=== PATIENT | male | born 1970 | race Caucasian/White ===

== ENCOUNTER → 2019-12-27 | Outpatient (CLI) | payer MEDICAID ==
[~2019-12-27] MED LIST: ASPI-808 PO; BREX0.5T PO; ESCI20TA45 PO; FURO20TA4 PO; GABA300C PO; GEMF600T PO; METF-399 PO; PRAV20TA3 PO; PRAZ2CAP2 PO; REGADENOSON 0.4 MG/5 ML SYR (LEXISCAN) IV ONE
[2019-12-27] MEDS: CATHETER FLUSH 10 ML SYR IV PRN ×2 (08:26→09:36)
[2019-12-27 09:35] VITALS: BP 137/84
--- NOTE | 2019-12-27 11:19 | Cardiology Stress Test Report ---
Stress Test Report Date of Procedure/Referring: Date of Procedure: Dec 27, 2019 PCP Eduard Garcia MD Admitting Physician Center/[facility] Indications: Hyperlipidemia Baseline Heart Rate: 56 Baseline Blood Pressure: Blood Pressure Systolic: 137 Blood Pressure Diastolic: 84 Baseline EKG: Baseline EKG: normal sinus rhythm Summary: Patient received 0.4 mg Lexiscan for stress test, ECG, heart rate and blood pressure were monitored continuously. Resting and stress dose of radio tracer were injected, imaging was acquired and reviewed in short axis, horizontal long axis and vertical long axis views. Conclusion: 1. Patient tolerated Lexiscan well 2. Diaphragmatic attenuation affecting the quality of the images with mild decreased uptake involving the mid to apical inferior wall and inferolateral wall, no significant reversibility was noted but overall nondiagnostic finding due to the significant diaphragmatic attenuation 3. Normal left ventricular size with hypokinesia of the inferior wall, aj culated ejection fraction 45 percent EDUARD GARCIA MD Dec 27, 2019 11:18
== END ==
LOC: CARD 07:37
PROVIDERS: ATTEND Internal Medicine Cardiovascular Disease
DX: I51.89 Other ill-defined heart diseases (principal); E78.1 Pure hyperglyceridemia; E78.5 Hyperlipidemia, unspecified; E66.9 Obesity, unspecified; R42 Dizziness and giddiness
CPT/HCPCS: 78452; 93017

== ENCOUNTER 2019-12-29 10:50 | Day surgery (SDC) | payer MEDICAID ==
[~2019-12-29] VITALS: Ht 193 cm; Wt 136.0 kg
[2019-12-29] VITALS (10 sets, daily range): BP systolic 146–182; BP diastolic 79–97
[2019-12-29] MEDS ORDERED: LIDOCAINE 1% INJ 20 ML 20 ML VIAL ONE (11:10)
[2019-12-29] MEDS ORDERED: NS IV 1000 ML 1,000 ML ONE (11:11)
[2019-12-29] MEDS ORDERED: HEParin (CATH LAB) 2,000 ML IV ONE (11:11)
[2019-12-29] MEDS: NS IV 1000 ML 1,000 ML IV SCH (11:27)
[2019-12-29] MEDS ORDERED: ESCI20TA45 PO (11:36)
[2019-12-29] MEDS ORDERED: BREX0.5T PO (11:36)
[2019-12-29] MEDS ORDERED: FURO20TA4 PO (11:36)
[2019-12-29] MEDS ORDERED: PRAZ2CAP2 PO (11:36)
[2019-12-29] MEDS ORDERED: PRAV20TA3 PO (11:36)
[2019-12-29] MEDS ORDERED: GABA300C PO (11:36)
[2019-12-29] MEDS ORDERED: METF-399 PO (11:36)
[2019-12-29] MEDS ORDERED: ASPI-808 PO (11:36)
[2019-12-29 11:37] LABS: BILIRUBIN,URINE NEGATIVE (NEGATIVE); CLARITY,URINE CLEAR; COLOR,URINE YELLOW; GLUCOSE, URINE (UA) 3+ (NEGATIVE); KETONES,URINE NEGATIVE (NEGATIVE); LEUKOCYTE ESTERASE ,URINE NEGATIVE (NEGATIVE); NITRITE,URINE NEGATIVE (NEGATIVE); PH,URINE 5.5 (5-9); PROTEIN,URINE NEGATIVE (NEGATIVE)
[2019-12-29 11:39] LABS: HEMOGLOBIN 15.8 G/DL (13.3-17.7); MEAN PLATELET VOLUME 11.8 FL (7.4-10.4); RED CELL DISTRIBUTION WIDTH 13.3 % (10.0-14.5); WHITE BLOOD COUNT 8.1 10^3/uL (4.3-11.0)
[2019-12-29 11:43] LABS: BACTERIA,URINE NEGATIVE /HPF
[2019-12-29 11:48] LABS: INR 0.9 (0.8-1.4); PROTHROMBIN TIME PATIENT 12.7 SEC (12.2-14.7)
[2019-12-29 11:57] LABS: ALANINE AMINOTRANSFERASE 34 U/L (0-55); ALBUMIN 4.3 GM/DL (3.2-4.5); ALKALINE PHOSPHATASE 74 U/L (40-136); BILIRUBIN,TOTAL 0.6 MG/DL (0.1-1.0); BUN/CREATININE RATIO 16; CALCIUM 9.5 MG/DL (8.5-10.1); CARBON DIOXIDE 24 MMOL/L (21-32); CHLORIDE 103 MMOL/L (98-107); CHOLESTEROL 236 MG/DL (< 200); CREATININE SERUM 0.83 MG/DL (0.60-1.30); GFR ESTIMATED > 60; GLUCOSE 343 MG/DL (70-105); HDL CHOLESTEROL 36 MG/DL (40-60); POTASSIUM 4.2 MMOL/L (3.6-5.0); SODIUM 137 MMOL/L (135-145); TOTAL PROTEIN 7.8 GM/DL (6.4-8.2); TRIGLYCERIDES 351 MG/DL (<150); VLDL CHOLESTEROL 70 MG/DL (5-40)
--- NOTE | 2019-12-29 11:58 | Diagnostic Imaging Report ---
INDICATION: Preop for heart catheterization. Patient has chest pain. TIME OF EXAM: 11:28 AM. COMPARISON: No prior studies are available for comparison. FINDINGS: The heart size is normal. The pulmonary vascularity is unremarkable. The lungs are clear. No infiltrate, effusion, or pneumothorax is detected. IMPRESSION: No acute cardiopulmonary process is detected. Dictated by: Dictated on workstation # [id number]
--- OUTSIDE RECORDS SUMMARY | 2019-12-29 12:40 | XMS REPORT ---
Author Author Sarath MCCLURE [facility] Address [address] [place] [address] Care Team Providers Care It Business Analyst Name Role Phone ISELA MCCLURE Unavailable PROBLEMS Type Condition ICD9-CM Code VGV84-UM Code Onset Dates Condition S tatus SNOMED Code Problem Severe episode of recurrent major depressive disorder, without psychotic features F33.2 Active 05437893 Problem Severe episode of recurrent major depressive disorder, without psychotic features F33.2 Active 22879985 Problem Hypothyroidism, unspecified type E03.9 Active 51767862 Problem Anxiety F41.9 Active 07656379 Problem Type 2 diabetes mellitus wit h hyperglycemia, without long-term current use of insulin E11.65 Active 17646184 Problem Mixed hyperlipidemia E78.2 Active 709140098 Problem Polyneuropathy associated with underlying disease G63 Active 338276204 Problem Polyneuropathy associated with underlying disease G63 Active 590571670 Problem Essential hypertension I10 Active 99960447 Problem PTSD (post-traumatic stress disorder) F43.10 Active 66536579 ALLERGIES No Information ENCOUNTERS Encounter Location Date Diagnosis [place] [address] [address] Dec, [place] [address] [address] Oct, [place] [address] [address] Sep, Type 2 diabetes mellitus with hyperglyce sdyney, without long-term current use of insulin E11.65 ; Essential hypertension I10 ; Mixed hyperlipidemia E78.2 ; Polyneuropathy associated with underlying disease G63 ; Severe episode of recurrent major depressive disorder, without psychotic features F33.2 and Edema, unspecified type R60.9 [place] [address] [address] Jun, PTSD (post-traumatic stress disorder) F4 3.10 and Major depressive disorder, recurrent severe without psychotic features F33.2 [place] [address] [address] Jun, PTSD (post-traumatic stress disorder) F4 3.10 and Major depressive disorder, recurrent severe without psychotic features F33.2 [place] [address] [address] Jun, Severe episode of recurrent major depres sive disorder, without psychotic features F33.2 and PTSD (post-traumatic stress disorder) F43.10 [place] [address] [address] May, PTSD (post-traumatic stress disorder) F4 3.10 and Major depressive disorder, recurrent severe without psychotic features F33.2 [place] [address] [address] Apr, Type 2 diabetes mellitus with hyperglyce sydney, without long-term current use of insulin E11.65 and Mixed hyperlipidemia E78.2 [place] [address] [address] Apr, Type 2 diabetes mellitus with hyperglyce sydney, without long-term current use of insulin E11.65 ; Hypothyroidism, unspecified type E03.9 ; Mixed hyperlipidemia E78.2 and Essential hypertension I10 [place] [address] [address] Apr, Type 2 diabetes mellitus with hyperglyce sydney, without long-term current use of insulin E11.65 ; Encounter to establish care Z76.89 ; Essential hypertension I10 ; Encounter for immunization Z23 ; Anxiety F41.9 ; PTSD (post- traumatic stress disorder) F43.10 ; Hypothyroidism, unspecified type E03.9 ; Severe episode of recurrent major depressive disorder, without psychotic features F33.2 ; Mixed hyperlipidemia E78.2 and Polyneuropathy associated with underlying disease G63 [place] [address] [address] Aug, IMMUNIZATIONS No Known Immunizations SOCIAL HISTORY Never Assessed REASON FOR VISIT PLAN OF CARE VITAL SIGNS MEDICATIONS Unknown Medications RESULTS No Results PROCEDURES No Known procedures INSTRUCTIONS MEDICATIONS ADMINISTERED No Known Medications MEDICAL (GENERAL) HISTORY Type Description Date Medical History diabetes Medical History high blood pressure Medical History thyroid issues Medical History anxiety Medical History ptsd Medical History migraines Surgical History No Surgical history information
--- OUTSIDE RECORDS SUMMARY | 2019-12-29 12:40 | XMS REPORT | Continuity of Care Document ---
Author Organization Unknown Address Unknown Phone Unavailable Allergies Active Description Code Type Severity Reaction Onset Reported/Identified Relationship to Patient Clinical Status Yes No Allergy Information Available [id number] Drug Allergy Unknown N/A 020 Medications There is no data. Problems There is no data. Procedures There is no data. Results Test Result Range CMP - 05/20/19 11:28 GLUCOSE 275 mg/dL 65-99 UREA NITROGEN (BUN) 11 mg/dL 7-25 CREATININE 0.65 mg/dL 0.60-1.35 eGFR NON-AFR. [place] 115 mL/min/1.73m2 > OR = 60 eGFR 133 mL/min/1.73m2 > OR = 60 BUN/CREATININE RATIO NOT APPLICABLE (calc) 6-22 SODIUM 138 mmol/L 135-146 POTASSIUM 4.7 mmol/L 3.5-5.3 CHLORIDE 102 mmol/L 98-110 CARBON DIOXIDE 28 mmol/L 20-32 CALCIUM 9.6 mg/dL 8.6-10.3 PROTEIN, TOTAL 6.9 g/dL 6.1-8.1 ALBUMIN 4.1 g/dL 3.6-5.1 GLOBULIN 2.8 g/dL (calc) 1.9-3.7 ALBUMIN/GLOBULIN RATIO 1.5 (calc) 1.0-2. 5 BILIRUBIN, TOTAL 0.7 mg/dL 0.2-1.2 ALKALINE PHOSPHATASE 83 U/L 40-115 AST 13 U/L 10-40 ALT 23 U/L 9-46 Automated blood complete blood count (he mogram) panel - 12/29/19 11:24 Blood leukocytes automated count (number/volume) 8.1 10*3/uL 4.3-11.0 Blood erythrocytes automated count (number/volume) 5.01 10*6/uL 4.35-5.85 Venous blood hemoglobin measurement (mass/volume) 15.8 g/dL 13.3-17.7 Blood hematocrit (volume fraction) 45 % 40-54 Automated erythrocyte mean corpuscular volume 89 [ foz_us] 80-99 Automated erythrocyte mean corpuscular h emoglobin (mass per erythrocyte) 32 pg 25-34 Automated erythrocyte mean corpuscular h emoglobin concentration measurement (mass/volume) 35 g/dL 32-36 Automated erythrocyte distribution width ratio 13. 3 % 10.0- 14.5 Automated blood platelet count (count/volume) 240 10*3/uL 130-400 Automated blood platelet mean volume measurement 11.8 [foz_us] 7.4-10.4 Complete urinalysis with reflex to cultu re - 12/29/19 11:24 Urine color determination YELLOW NRG Urine clarity determination CLEAR NR G Urine pH measurement by test strip 5.5 5-9 Specific gravity of urine by test strip 1.025 1.016-1.022 Urine protein assay by test strip, semi-quantitative NEGATIVE NEGATIVE Urine glucose detection by automated test strip 3+ NEGATIVE Erythrocytes detection in urine sediment by light micr oscopy NEGATIVE NEGATIVE Urine ketones detection by automated test strip NE GATIVE NEGATIVE Urine nitrite detection by test strip NEGATIVE NEGATIVE Urine total bilirubin detection by test strip NEGA TIVE NEGATIVE Urine urobilinogen measurement by automated test strip (mass/volume) 0.2 mg/dL < = 1.0 Urine leukocyte esterase detection by dipstick NEG ATIVE NEGATIVE Automated urine sediment erythrocyte cou nt by microscopy (number/high power field) NONE NRG Automated urine sediment leukocyte count by microscopy (number/high power field) NONE NRG Bacteria detection in urine sediment by light microsco py NEGATIVE NRG Squamous epithelial cells detection in u rine sediment by light microscopy 2-5 NRG Crystals detection in urine sediment by light microsco py NONE NRG Casts detection in urine sediment by light microscopy NONE NRG Mucus detection in urine sediment by light microscopy NEGATIVE NRG Complete urinalysis with reflex to culture NO NRG PT panel in platelet poor plasma by coag ulation assay - 12/29/19 11:24 Prothrombin time (PT) in platelet poor plasma by coagu lation assay 12.7 s 12.2-14.7 INR in platelet poor plasma or blood by coagulation as say 0.9 0.8-1.4 Activated partial thromboplastin time (a PTT) in platelet poor plasma bycoagulation assay - 12/29/19 11:24 Activated partial thromboplastin time (a PTT) in platelet poor plasma bycoagulation assay 28 s 24-35 Comprehensive metabolic panel - 12/29/19 11:24 Serum or plasma sodium measurement (moles/volume) 137 mmol/L 135-145 Serum or plasma potassium measurement (moles/volume) 4.2 mmol/L 3.6-5.0 Serum or plasma chloride measurement (moles/volume) 103 mmol/L 98-107 Carbon dioxide 24 mmol/L 21-32 Serum or plasma anion gap determination (moles/volume) 10 mmol/L 5-14 Serum or plasma urea nitrogen measurement (mass/volume ) 13 mg/dL 7-18 Serum or plasma creatinine measurement (mass/volume) 0.83 mg/dL 0.60-1.30 Serum or plasma urea nitrogen/creatinine mass ratio 16 NRG Serum or plasma creatinine measurement w ith calculation of estimated glomerular filtration rate > NRG Serum or plasma glucose measurement (mass/volume) 343 mg/dL 70-105 Serum or plasma calcium measurement (mass/volume) 9.5 mg/dL 8.5-10.1 Serum or plasma total bilirubin measurement (mass/volu me) 0.6 mg/dL 0.1-1.0 Serum or plasma alkaline phosphatase michael surement (enzymatic activity/volume) 74 U/L 40-136 Serum or plasma aspartate aminotransfera se measurement (enzymatic activity/volume) 20 U/L 5-34 Serum or plasma alanine aminotransferase measurement (enzymatic activity/volume) 34 U/L 0-55 Serum or plasma protein measurement (mass/volume) 7.8 g/dL 6.4-8.2 Serum or plasma albumin measurement (mass/volume) 4.3 g/dL 3.2-4.5 CALCIUM CORRECTED 9.3 mg/dL 8.5-10.1 Lipid 1996 panel - 12/29/19 11:24 Serum or plasma triglyceride measurement (mass/volume) 351 mg/dL <150 Serum or plasma cholesterol measurement (mass/volume) 236 mg/dL < 200 Serum or plasma cholesterol in HDL measurement (mass/v olume) 36 mg/dL 40-60 Cholesterol in LDL [mass/volume] in serum or plasma by direct assay 124 mg/dL 1-129 Serum or plasma cholesterol in VLDL measurement (mass/ volume) 70 mg/dL 5-40 Encounters ACCT No. Visit Date/Time Discharge Status Pt. Type Provider Facility Loc./Unit Complaint [id number] 07/15/2019 13:00:00 07/15/2019 23:59:5 9 [facility] [place] [id number] 05/20/2019 11:20:00 Document Registration [id number] 12/29/2019 08:00:00 P EN Preadmit EDUARD PA MD [facility] ABN STRESS TEST [id number] 12/27/2019 08:08:00 Document Registration [id number] 12/27/2019 07:37:[address] Out[address] EDUARD PA MD [facility] CARD HYPERTRIGLYCERIDEMIA,DYSPNEA,DIZZINESS,OBESITY
--- NOTE | 2019-12-29 14:15 | Cardiac Procedure Note-CS/ASA ---
Pre-Procedure Note Pre-Op Procedure Note H&P Reviewed The H&P was reviewed, patient examined and no changes noted. Date H&P Reviewed: Dec 29, 2019 Time H&P Reviewed: 14:15 Conscious Sedation Pre-Proced Time 14:15 ASA Score 3 For ASA 3 and 4: Consider anesthesia and medical clearance. Also, for patients with a history of failed moderate sedation consider anesthesia. Airway Lungs Heart ASA score ASA 1: a normal healthy patient ASA 2: a patient with a mild systemic disease (mid diabetes, controlled hypertension, obesity x ASA 3: a patient with a severe systemic disease that limits activity (angina, COPD, prior Myocardial infarction) ASA 4: a patient with an incapacitating disease that is a constant threat to life (CHF, renal failure) ASA 5: a moribund patient not expected to survive 24 hrs. (ruptured aneurysm) ASA 6: a declared brain- patient whose organs are being harvested. For emergent operations, add the letter E after the classification Mallampati Classification Grade 3 Sedation Plan Analgesia, Amnesia, Plan communicated to team members, Discussed options with patient/fam, Discussed risks with patient/fam The patient is an appropriate candidate to undergo the planned procedure, sedation, and anesthesia. The patient immediately re-assessed prior to indication. EDUARD PA MD Dec 29, 2019 14:15
[2019-12-29] MEDS ORDERED: NITRO DRIP 25000 MCG/D5W 250 ML IV ONE (14:19)
[2019-12-29] MEDS ORDERED: VERAPAMIL 5 MG/2 ML (CALAN) VIAL IV ONE (14:19)
[2019-12-29] MEDS ORDERED: HEParin 1000 UNIT/ML (10ML VIAL) FOR BOLUS ONE (14:19)
[2019-12-29] MEDS ORDERED: MIDAZOLAM 5 MG/5 ML (VERSED) VIAL ONE (14:19)
[2019-12-29] MEDS ORDERED: fentaNYL INJECTION 100 MCG/2 ML AMP ONE (14:19)
[2019-12-29] MEDS ORDERED: NS IV 1000 ML 1,000 ML IV SCH (15:06)
[2019-12-29] MEDS ORDERED: GEMF600T PO (15:09)
--- NOTE | 2019-12-29 15:09 | Discharge Inst-Post CATH ---
Discharge Inst-CATH/EP Problems Reviewed?: Yes Post Cardiac Cath/EP D/C Inst Follow Up/Plan Appointment with Dr. Garcia's office in one month <b>CARDIAC CATH/EP PROCEDURE DISCHARGE INSTRUCTIONS</b> ACTIVITY * Go Home directly and rest. * Limit activity of the leg (or wrist if it was used) for 7 days including aerobics, swimming, jogging, bicycling, etc. * Restrict stair-climbing for 7 days if possible, if not, climb up with your non-cath leg, then bring together on the same step. * Avoid lifting, pushing, pulling or excessive movement of the affected extremity for 7 days. * Customary sexual activity may be resumed after 2 days-use caution not to use a position that strains or causes pain to the affected extremity. * No driving for 24 hours. * NO SMOKING. * Avoid straining for bowel movements for 7 days. * Gentle walking on level ground is allowed. * Returning to work will depend on the type of procedure and the results. Your doctor will discuss this with you. CALL YOUR DOCTOR FOR ANY OF THE FOLLOWING: *If bleeding from the puncture site occurs- Apply gentle pressure to site with clean cloth and call your doctor or EMS. * If a knot or lump forms under the skin, increases in size, or causes pain. * If bruising appears to be worsening or moving further down your leg instead of disappearing. * Temperature above 101 F. CARE OF YOUR GROIN INCISION; * Bruising or purple discoloration of the skin near the puncture site is common. * You may shower only, no bathtub bathing for 5 days. Be careful to avoid slipping as your leg may feel stiff. * If a closure device was used on your femoral artery, please see the attached guide regarding care of the device and your leg. * Leave dressing on FOR 24 hours. CARE OF YOUR WRIST INCISION; * Bruising or purple discoloration of the skin near the puncture site is common. * You may shower. * DO NOT submerge wrist. * Leave dressing on FOR 24 hours. EDUARD GARCIA MD Dec 29, 2019 3:09 pm
--- NOTE | 2019-12-29 15:13 | Cardiac Cath Report ---
Cardiac Cath Report Physician (s)/Broaching Machine Set Up Operator (s) Physician EDUARD PA MD Pre-Procedure Diagnosis Pre-Procedure Diagnosis: coronary artery disease Post-Procedure Note Procedure Start Date: Dec 29, 2019 Name of Procedure: Left heart catheterization Findings/Procedure Note PROCEDURE NOTE: 49-year-old gentleman with history of hypertension, hyperlipidemia, diabetes mellitus, had an abnormal stress test, scheduled for cardiac catheterization possible PTCA. After explaining the procedure to the patient, all pros and cons were explained, all questions were answered. The patient signed the consent and then he was placed on the cardiac catheterization laboratory. Groin was prepped SL fashion local anesthesia was used. Sheath placed in the right radial artery, tiger catheter advanced to the left ventricular cavity then pulled back to the left main coronary system and angiogram was done to the left coronary system exchange into JR catheter and evaluated the right coronary system. At the end of the procedure the sheath was removed. Vascular band was used FINDINGS: Hemodynamics LV 148/18, end-diastolic pressure of 18 Aorta 135/82 mean of 70 ANATOMY: Left Main is free of obstructive disease Left Anterior Descending has mild disease slightly tortuous no obstructive disease Left Circumflex has mild disease with no obstructive disease Right Coronory Artery has mild disease with no obstructive disease CONCLUSION: 1. Mild tortuosity in the LAD, nonobstructive disease otherwise no significant obstructive disease 2. Elevated left ventricular end-diastolic pressure DISCUSSION AND RECOMMENDATION: Medical therapy is recommended no intervention is needed Anesthesia Type: Conscious Sedation Estimated blood loss (mL): 10 ml Contrast Amount: 45 ml Total Radiation Dose: 430 mGy Post-Procedure Diagnosis Post-operative diagnosis: Chest pain Coronary artery disease Hypertension Hyperlipidemia EDUARD PA MD Dec 29, 2019 15:13
== END 2019-12-29 17:40 | disposition home or self-care (01) ==
LOC: CATH 10:50 → SDC 15:25 → CATH 17:40
PROVIDERS: ATTEND Internal Medicine Cardiovascular Disease
DX: I25.10 Atherosclerotic heart disease of native coronary artery without angina pectoris (principal); E78.5 Hyperlipidemia, unspecified; I10 Essential (primary) hypertension; I83.90 Asymptomatic varicose veins of unspecified lower extremity; I87.2 Venous insufficiency (chronic) (peripheral); E78.1 Pure hyperglyceridemia; E11.9 Type 2 diabetes mellitus without complications; E66.9 Obesity, unspecified; Z68.39 Body mass index [BMI] 39.0-39.9, adult; Z79.82 Long term (current) use of aspirin; Z79.84 Long term (current) use of oral hypoglycemic drugs; Z87.891 Personal history of nicotine dependence; Z79.899 Other long term (current) drug therapy; Z82.3 Family history of stroke; Z80.9 Family history of malignant neoplasm, unspecified
CPT/HCPCS: 36415; 71045; 80053; 80061; 81000; 85027; 85610; 85730; 87081; 93458

== ENCOUNTER → 2020-01-06 | Outpatient (CLI) | payer MEDICAID ==
[~2020-01-06] MED LIST changes: -REGADENOSON 0.4 MG/5 ML SYR (LEXISCAN) IV ONE
== END ==
LOC: EDUNIT# 01-03 09:00 → CARD 14:17
PROVIDERS: ATTEND Internal Medicine Cardiovascular Disease
DX: I35.8 Other nonrheumatic aortic valve disorders (principal); E78.1 Pure hyperglyceridemia; E66.9 Obesity, unspecified
CPT/HCPCS: 93306

== ENCOUNTER → 2021-06-18 | Outpatient (CLI) | payer MEDICAID ==
[~2021-06-18] MED LIST changes: +ESCI20TA39 PO; -ESCI20TA45 PO
[2021-06-18 11:23] LABS: ALBUMIN 3.9 GM/DL (3.2-4.5); BILIRUBIN,TOTAL 0.3 MG/DL (0.1-1.0); CALCIUM 9.3 MG/DL (8.5-10.1); CREATININE SERUM 0.8 MG/DL (0.60-1.30); TOTAL PROTEIN 7.7 GM/DL (6.4-8.2)
--- NOTE | 2021-06-18 12:00 | Diagnostic Imaging Report ---
INDICATION: Foot ulcer COMPARISON: None. FINDINGS: 3 views of the left foot demonstrate no acute fracture or dislocation. There are no focal osseous lesions. There is no soft tissue swelling. Joint spaces are well maintained. No radiopaque foreign bodies are seen. IMPRESSION: No acute fractures or dislocations of the left foot. Dictated by: Dictated on workstation # [id number]
== END ==
LOC: RAD 10:43
PROVIDERS: ATTEND Family Medicine
DX: E11.621 Type 2 diabetes mellitus with foot ulcer (principal)
CPT/HCPCS: 36415; 73630; 80053; 83036; 85652; 86141

== ENCOUNTER → 2021-06-18 | Outpatient (CLI) | payer MEDICAID | LOC: WOUNDCARE 09:03 | PROVIDERS: ATTEND Family Medicine | DX: E11.621 Type 2 diabetes mellitus with foot ulcer (principal); L97.522 Non-pressure chronic ulcer of other part of left foot with fat layer exposed; E11.65 Type 2 diabetes mellitus with hyperglycemia; I25.10 Atherosclerotic heart disease of native coronary artery without angina pectoris; L03.116 Cellulitis of left lower limb | CPT/HCPCS: 99214 ==

== ENCOUNTER → 2021-06-27 | Outpatient (CLI) | payer MEDICAID | LOC: WOUNDCARE 13:02 | PROVIDERS: ATTEND Family Medicine | DX: E11.621 Type 2 diabetes mellitus with foot ulcer (principal); L97.522 Non-pressure chronic ulcer of other part of left foot with fat layer exposed; E11.65 Type 2 diabetes mellitus with hyperglycemia; E11.43 Type 2 diabetes mellitus with diabetic autonomic (poly)neuropathy; E11.52 Type 2 diabetes mellitus with diabetic peripheral angiopathy with gangrene | CPT/HCPCS: 11042 ==

== ENCOUNTER → 2021-07-02 | Outpatient (CLI) | payer MEDICAID | LOC: WOUNDCARE 09:39 | PROVIDERS: ATTEND Family Medicine | DX: E11.621 Type 2 diabetes mellitus with foot ulcer (principal); L97.522 Non-pressure chronic ulcer of other part of left foot with fat layer exposed; E11.65 Type 2 diabetes mellitus with hyperglycemia; E11.52 Type 2 diabetes mellitus with diabetic peripheral angiopathy with gangrene; E11.43 Type 2 diabetes mellitus with diabetic autonomic (poly)neuropathy | CPT/HCPCS: 11042 ==

== ENCOUNTER → 2021-07-04 | Outpatient (CLI) | payer MEDICAID | LOC: WOUNDCARE 10:21 | PROVIDERS: ATTEND Family Medicine | DX: E11.621 Type 2 diabetes mellitus with foot ulcer (principal); L97.522 Non-pressure chronic ulcer of other part of left foot with fat layer exposed; E11.52 Type 2 diabetes mellitus with diabetic peripheral angiopathy with gangrene; E11.65 Type 2 diabetes mellitus with hyperglycemia; E11.42 Type 2 diabetes mellitus with diabetic polyneuropathy | CPT/HCPCS: 29445 ==

== ENCOUNTER → 2021-07-09 | Outpatient (CLI) | payer MEDICAID | LOC: WOUNDCARE 10:06 | PROVIDERS: ATTEND Family Medicine | DX: E11.621 Type 2 diabetes mellitus with foot ulcer (principal); L97.522 Non-pressure chronic ulcer of other part of left foot with fat layer exposed; E11.65 Type 2 diabetes mellitus with hyperglycemia; E11.43 Type 2 diabetes mellitus with diabetic autonomic (poly)neuropathy; E11.649 Type 2 diabetes mellitus with hypoglycemia without coma; E11.52 Type 2 diabetes mellitus with diabetic peripheral angiopathy with gangrene | CPT/HCPCS: 11042 ==

== ENCOUNTER → 2021-07-16 | Outpatient (CLI) | payer MEDICAID ==
[~2021-07-16] MED LIST changes: +BENZ100C18 PO; +CEFD300C3 PO
== END ==
LOC: WOUNDCARE 09:58
PROVIDERS: ATTEND Family Medicine
DX: E11.621 Type 2 diabetes mellitus with foot ulcer (principal); E11.52 Type 2 diabetes mellitus with diabetic peripheral angiopathy with gangrene; L97.522 Non-pressure chronic ulcer of other part of left foot with fat layer exposed; E11.65 Type 2 diabetes mellitus with hyperglycemia; E11.43 Type 2 diabetes mellitus with diabetic autonomic (poly)neuropathy; E11.649 Type 2 diabetes mellitus with hypoglycemia without coma
CPT/HCPCS: 11042

== ENCOUNTER → 2021-07-24 | Outpatient (CLI) | payer MEDICAID | LOC: WOUNDCARE 10:13 | PROVIDERS: ATTEND Family Medicine | DX: E11.621 Type 2 diabetes mellitus with foot ulcer (principal); E11.52 Type 2 diabetes mellitus with diabetic peripheral angiopathy with gangrene; L97.522 Non-pressure chronic ulcer of other part of left foot with fat layer exposed; E11.65 Type 2 diabetes mellitus with hyperglycemia; E11.43 Type 2 diabetes mellitus with diabetic autonomic (poly)neuropathy; E11.649 Type 2 diabetes mellitus with hypoglycemia without coma | CPT/HCPCS: 11042 ==

== ENCOUNTER → 2021-08-01 | Outpatient (CLI) | payer MEDICAID | LOC: WOUNDCARE 12:58 | PROVIDERS: ATTEND Family Medicine | DX: E11.621 Type 2 diabetes mellitus with foot ulcer (principal); L97.522 Non-pressure chronic ulcer of other part of left foot with fat layer exposed; E11.65 Type 2 diabetes mellitus with hyperglycemia; E11.43 Type 2 diabetes mellitus with diabetic autonomic (poly)neuropathy; E11.52 Type 2 diabetes mellitus with diabetic peripheral angiopathy with gangrene | CPT/HCPCS: 11042 ==

== ENCOUNTER → 2021-08-06 | Outpatient (CLI) | payer MEDICAID | LOC: WOUNDCARE 10:18 | PROVIDERS: ATTEND Family Medicine | DX: E11.621 Type 2 diabetes mellitus with foot ulcer (principal); L97.522 Non-pressure chronic ulcer of other part of left foot with fat layer exposed; E11.65 Type 2 diabetes mellitus with hyperglycemia; E11.43 Type 2 diabetes mellitus with diabetic autonomic (poly)neuropathy; E11.52 Type 2 diabetes mellitus with diabetic peripheral angiopathy with gangrene | CPT/HCPCS: 11042 ==

== ENCOUNTER → 2021-08-07 | Outpatient (CLI) | payer MEDICAID | LOC: WOUNDCARE 16:05 | PROVIDERS: ATTEND Family Medicine | DX: E11.621 Type 2 diabetes mellitus with foot ulcer (principal); L97.522 Non-pressure chronic ulcer of other part of left foot with fat layer exposed; E11.65 Type 2 diabetes mellitus with hyperglycemia; E11.43 Type 2 diabetes mellitus with diabetic autonomic (poly)neuropathy; Z68.37 Body mass index [BMI] 37.0-37.9, adult | CPT/HCPCS: 29445 ==

== ENCOUNTER → 2021-08-13 | Outpatient (CLI) | payer MEDICAID | LOC: WOUNDCARE 08:38 | PROVIDERS: ATTEND Family Medicine | DX: E11.621 Type 2 diabetes mellitus with foot ulcer (principal); E11.52 Type 2 diabetes mellitus with diabetic peripheral angiopathy with gangrene; L97.522 Non-pressure chronic ulcer of other part of left foot with fat layer exposed; E11.65 Type 2 diabetes mellitus with hyperglycemia; E11.43 Type 2 diabetes mellitus with diabetic autonomic (poly)neuropathy; L03.116 Cellulitis of left lower limb | CPT/HCPCS: 29445 ==

== ENCOUNTER → 2021-08-20 | Outpatient (CLI) | payer MEDICAID | LOC: WOUNDCARE 10:23 | PROVIDERS: ATTEND Family Medicine | DX: E11.621 Type 2 diabetes mellitus with foot ulcer (principal); L97.522 Non-pressure chronic ulcer of other part of left foot with fat layer exposed; E11.65 Type 2 diabetes mellitus with hyperglycemia; E11.43 Type 2 diabetes mellitus with diabetic autonomic (poly)neuropathy | CPT/HCPCS: 99212 ==

== ENCOUNTER → 2022-03-25 | Outpatient (CLI) | payer MEDICAID | LOC: WOUNDCARE 13:10 | PROVIDERS: ATTEND Family Medicine | DX: L97.522 Non-pressure chronic ulcer of other part of left foot with fat layer exposed (principal); L97.512 Non-pressure chronic ulcer of other part of right foot with fat layer exposed; E11.621 Type 2 diabetes mellitus with foot ulcer; E11.40 Type 2 diabetes mellitus with diabetic neuropathy, unspecified; B37.2 Candidiasis of skin and nail; E66.01 Morbid (severe) obesity due to excess calories; L92.8 Other granulomatous disorders of the skin and subcutaneous tissue | CPT/HCPCS: 11042 ==

== ENCOUNTER → 2022-04-05 | Outpatient (CLI) | payer MEDICAID ==
--- NOTE | 2022-04-05 10:31 | Diagnostic Imaging Report ---
HISTORY: Bilateral foot ulcers. TECHNIQUE: 3 views of the bilateral feet. COMPARISON: Foot radiographs from 06/18/2021 FINDINGS: No acute fracture or dislocation is seen in the right foot. Alignment is normal. There are mild degenerative changes in the toes. There is calcaneal enthesopathy. There is calcific atherosclerosis. There is a soft tissue calcification measuring about 1.4 cm, adjacent to the 5th metatarsal head. No acute fracture or dislocation is seen in the left foot. There is soft tissue swelling and ulceration at the great toe. There is overlying hyperdensity which is thought to be due to paint on the nail. No definite cortical erosion or periosteal reaction is identified. There are mild degenerative changes in the interphalangeal joints of the toes. There are small calcaneal enthesophytes. IMPRESSION: 1. Mild degenerative changes in the feet with no radiographic findings of osteomyelitis. If there is persistent clinical concern, consider MRI to further evaluate. 2. Soft tissue swelling and ulceration of the left great toe. 3. Prominent soft tissue calcification adjacent to the right 5th metatarsal head. Dictated by: Dictated on workstation # [id number]
== END ==
LOC: WOUNDCARE 08:17
PROVIDERS: ATTEND Family Medicine
DX: E11.621 Type 2 diabetes mellitus with foot ulcer (principal); E11.40 Type 2 diabetes mellitus with diabetic neuropathy, unspecified; E11.52 Type 2 diabetes mellitus with diabetic peripheral angiopathy with gangrene; I96 Gangrene, not elsewhere classified; L97.512 Non-pressure chronic ulcer of other part of right foot with fat layer exposed; L97.522 Non-pressure chronic ulcer of other part of left foot with fat layer exposed; E66.01 Morbid (severe) obesity due to excess calories; L92.8 Other granulomatous disorders of the skin and subcutaneous tissue; Z68.38 Body mass index [BMI] 38.0-38.9, adult
CPT/HCPCS: 11042

== ENCOUNTER → 2022-04-12 | Outpatient (CLI) | payer MEDICAID | LOC: WOUNDCARE 08:18 | PROVIDERS: ATTEND Family Medicine | DX: L97.522 Non-pressure chronic ulcer of other part of left foot with fat layer exposed (principal); L97.512 Non-pressure chronic ulcer of other part of right foot with fat layer exposed; E11.621 Type 2 diabetes mellitus with foot ulcer; E11.40 Type 2 diabetes mellitus with diabetic neuropathy, unspecified; E66.01 Morbid (severe) obesity due to excess calories; L92.8 Other granulomatous disorders of the skin and subcutaneous tissue; E11.52 Type 2 diabetes mellitus with diabetic peripheral angiopathy with gangrene | CPT/HCPCS: 11042; 17250 ==

== ENCOUNTER → 2022-04-23 | Outpatient (CLI) | payer MEDICAID | LOC: WOUNDCARE 12:56 | PROVIDERS: ATTEND Family Medicine | DX: L97.522 Non-pressure chronic ulcer of other part of left foot with fat layer exposed (principal); L97.512 Non-pressure chronic ulcer of other part of right foot with fat layer exposed; E11.621 Type 2 diabetes mellitus with foot ulcer; E11.40 Type 2 diabetes mellitus with diabetic neuropathy, unspecified; E66.01 Morbid (severe) obesity due to excess calories; L92.9 Granulomatous disorder of the skin and subcutaneous tissue, unspecified | CPT/HCPCS: 17250 ==

== ENCOUNTER → 2022-05-07 | Outpatient (CLI) | payer MEDICAID | LOC: WOUNDCARE 13:06 | PROVIDERS: ATTEND Family Medicine | DX: E11.621 Type 2 diabetes mellitus with foot ulcer (principal); E11.40 Type 2 diabetes mellitus with diabetic neuropathy, unspecified; A49.9 Bacterial infection, unspecified; L97.512 Non-pressure chronic ulcer of other part of right foot with fat layer exposed; E66.01 Morbid (severe) obesity due to excess calories; L92.8 Other granulomatous disorders of the skin and subcutaneous tissue; Z68.38 Body mass index [BMI] 38.0-38.9, adult | CPT/HCPCS: 11042; 87070; 87077; 87186; 87205 ==

== ENCOUNTER → 2022-05-14 | Outpatient (CLI) | payer MEDICAID | LOC: WOUNDCARE 12:57 | PROVIDERS: ATTEND Family Medicine | DX: L97.512 Non-pressure chronic ulcer of other part of right foot with fat layer exposed (principal); E11.621 Type 2 diabetes mellitus with foot ulcer; E11.40 Type 2 diabetes mellitus with diabetic neuropathy, unspecified; E66.01 Morbid (severe) obesity due to excess calories; L92.8 Other granulomatous disorders of the skin and subcutaneous tissue; B95.62 Methicillin resistant Staphylococcus aureus infection as the cause of diseases classified elsewhere | CPT/HCPCS: 11042 ==

== ENCOUNTER → 2022-05-27 | Outpatient (CLI) | payer MEDICAID | LOC: WOUNDCARE 15:16 | PROVIDERS: ATTEND Family Medicine | DX: E11.621 Type 2 diabetes mellitus with foot ulcer (principal); E11.40 Type 2 diabetes mellitus with diabetic neuropathy, unspecified; E11.52 Type 2 diabetes mellitus with diabetic peripheral angiopathy with gangrene; I96 Gangrene, not elsewhere classified; L97.512 Non-pressure chronic ulcer of other part of right foot with fat layer exposed; E66.01 Morbid (severe) obesity due to excess calories; Z68.38 Body mass index [BMI] 38.0-38.9, adult | CPT/HCPCS: 11042 ==

== ENCOUNTER → 2022-06-28 | Outpatient (CLI) | payer MEDICAID ==
[2022-06-28 09:15] LABS: BASOPHILS # (AUTO) 0.1 10^3/uL (0.0-0.1); BASOPHILS % (AUTO) 1 % (0-10); EOSINOPHILS # (AUTO) 0.3 10^3/uL (0.0-0.3); EOSINOPHILS % (AUTO) 3 % (0-10); HEMATOCRIT 47 % (40-54); HEMOGLOBIN 15.9 g/dL (13.3-17.7); LYMPHOCYTES % (AUTO) 18 % (12-44); MEAN CORPUSCULAR HEMOGLOBIN 31 pg (25-34); MEAN CORPUSCULAR HGB CONC 34 g/dL (32-36); MEAN CORPUSCULAR VOLUME 93 fL (80-99); MEAN PLATELET VOLUME 11.4 fL (9.0-12.2); MONOCYTES # (AUTO) 0.5 10^3/uL (0.0-1.0); MONOCYTES % (AUTO) 5 % (0-12); NEUTROPHILS # (AUTO) 7.8 10^3/uL (1.8-7.8); NEUTROPHILS % (AUTO) 73 % (42-75); PLATELET COUNT 307 10^3/uL (130-400); WHITE BLOOD COUNT 10.8 10^3/uL (4.3-11.0)
[2022-06-28 09:31] LABS: ALBUMIN 4.2 GM/DL (3.2-4.5); BILIRUBIN,TOTAL 0.5 MG/DL (0.1-1.0); CALCIUM 9.3 MG/DL (8.5-10.1); CREATININE SERUM 0.87 MG/DL (0.60-1.30); POTASSIUM 3.9 MMOL/L (3.6-5.0); TOTAL PROTEIN 7.8 GM/DL (6.4-8.2)
[2022-06-28 10:00] LABS: ERYTHROCYTE SEDIMENTATION RATE 16 MM/HR (0-30)
== END ==
LOC: WOUNDCARE 08:02
PROVIDERS: ATTEND Family Medicine
DX: E11.621 Type 2 diabetes mellitus with foot ulcer (principal); E11.52 Type 2 diabetes mellitus with diabetic peripheral angiopathy with gangrene; I96 Gangrene, not elsewhere classified; E11.40 Type 2 diabetes mellitus with diabetic neuropathy, unspecified; L97.512 Non-pressure chronic ulcer of other part of right foot with fat layer exposed; E66.01 Morbid (severe) obesity due to excess calories; Z68.38 Body mass index [BMI] 38.0-38.9, adult
CPT/HCPCS: 11042; 36415; 80053; 83036; 85025; 85652; 86141; 87070; 87077; 87186; 87205

== ENCOUNTER → 2022-07-04 | Outpatient (CLI) | payer MEDICAID | LOC: WOUNDCARE 08:06 | PROVIDERS: ATTEND Family Medicine | DX: I96 Gangrene, not elsewhere classified (principal); L97.512 Non-pressure chronic ulcer of other part of right foot with fat layer exposed; E11.621 Type 2 diabetes mellitus with foot ulcer; E11.40 Type 2 diabetes mellitus with diabetic neuropathy, unspecified; E66.01 Morbid (severe) obesity due to excess calories; Z68.38 Body mass index [BMI] 38.0-38.9, adult | CPT/HCPCS: 11042 ==

== ENCOUNTER → 2022-07-11 | Outpatient (CLI) | payer MEDICAID | LOC: WOUNDCARE 09:52 | PROVIDERS: ATTEND Family Medicine | DX: L97.512 Non-pressure chronic ulcer of other part of right foot with fat layer exposed (principal); E11.621 Type 2 diabetes mellitus with foot ulcer; E11.40 Type 2 diabetes mellitus with diabetic neuropathy, unspecified; E66.01 Morbid (severe) obesity due to excess calories; B95.62 Methicillin resistant Staphylococcus aureus infection as the cause of diseases classified elsewhere | CPT/HCPCS: 11042 ==

== ENCOUNTER → 2022-08-13 | Outpatient (CLI) | payer MEDICAID | LOC: WOUNDCARE 08:13 | PROVIDERS: ATTEND Family Medicine | DX: E11.621 Type 2 diabetes mellitus with foot ulcer (principal); E11.40 Type 2 diabetes mellitus with diabetic neuropathy, unspecified; E11.52 Type 2 diabetes mellitus with diabetic peripheral angiopathy with gangrene; I96 Gangrene, not elsewhere classified; L97.512 Non-pressure chronic ulcer of other part of right foot with fat layer exposed; Z68.41 Body mass index [BMI] 40.0-44.9, adult | CPT/HCPCS: 11042; 87070; 87077; 87205 ==

== ENCOUNTER 2022-08-21 09:19 | Observation (INO) | payer BC, MEDICAID ==
[~2022-08-21] VITALS: Ht 193 cm; Wt 143.2 kg
[~2022-08-21 09:19] MED LIST changes: -ASPI-1238 PO; -ATOR20TA66 PO; -DULA0.75 SQ; -EMPA25TA PO; -GLIP10TA13 PO; -INSU100I29 SC; -LEVO75TA6 PO
[2022-08-21] MEDS ORDERED: NS IV 1000 ML 1,000 ML IV SCH (10:00)
[2022-08-21] MEDS ORDERED: TETANUS,DIPTH,PERTUSS P/F (BOOSTRIX) 0.5 ML VIAL IM ONE (10:00)
[2022-08-21 10:01] LABS: BASOPHILS % (AUTO) 1 % (0-10); EOSINOPHILS # (AUTO) 0.5 10^3/uL (0.0-0.3); EOSINOPHILS % (AUTO) 5 % (0-10); HEMATOCRIT 44 % (40-54); HEMOGLOBIN 15.3 g/dL (13.3-17.7); LYMPHOCYTES # (AUTO) 1.9 10^3/uL (1.0-4.0); LYMPHOCYTES % (AUTO) 22 % (12-44); MEAN CORPUSCULAR HEMOGLOBIN 32 pg (25-34); MEAN CORPUSCULAR HGB CONC 35 g/dL (32-36); MEAN CORPUSCULAR VOLUME 93 fL (80-99); MEAN PLATELET VOLUME 11.2 fL (9.0-12.2); MONOCYTES # (AUTO) 0.4 10^3/uL (0.0-1.0); MONOCYTES % (AUTO) 5 % (0-12); NEUTROPHILS # (AUTO) 5.6 10^3/uL (1.8-7.8); NEUTROPHILS % (AUTO) 67 % (42-75); PLATELET COUNT 261 10^3/uL (130-400); WHITE BLOOD COUNT 8.5 10^3/uL (4.3-11.0)
--- NOTE | 2022-08-21 10:01 | ED General ---
General Stated Complaint: FALL | FACIAL INJ Source of Information: Patient History of Present Illness Date Seen by Provider: Aug 21, 2022 Time Seen by Provider: 09:45 Initial Comments PT ARRIVES INTO ER ON HIS OWN--USING A KNEE SCOOTER PT HAS BEEN TO WOUND CARE CLINIC THIS AM, AN WAS GOING OUT TO HIS VEHICLE AND HAD A SYNCOPAL EPISODE IN THE PARKING LOT, LANDING FACE FIRST ON THE PAVEMENT HE HAS INJURY TO HIS 2 FRONT UPPER TEETH C/O MOUTH PAIN AND PAIN TO HIS HEAD--ESPECIALLY THE FRONTAL ASPECT OF HIS HEAD HE DENIES NECK OR BACK PAIN HE HAS ONGOING CHEST PAIN, STATES HE HAS IT "ALL THE TIME" "BUT IT'S BEEN A LITTLE WORSE LATELY" HE HAS HAD A CARDIAC CATH IN THE PAST, BUT NO INTERVENTION. HE HAS AN APPOINTMENT WITH DR. PA, CERTIFIED MORTICIAN, TOMORROW NO PALPITATIONS NO SHORTNESS OF BREATH NO SWEATS NO NAUSEA/VOMITING HE HAS SOME MINOR ABRASIONS TO RIGHT PALM AND LEFT FINGERS. HE DENIES PAIN ANYWHERE ELSE. DENIES NECK OR BACK PAIN NO PARESTHESIAS OR MOTOR DEFICITS. HE IS NOT CURRENTLY HAVING CHEST PAIN NO FEVER OR RECENT ILLNESS PT STATES HE HAS BEEN HAVING THESE SYNCOPAL EPISODES, AND IS SUPPOSED TO HAVE SEVERAL OTHER TESTS NEXT MONTH AN OUTPATIENT FOR THIS, INCLUDING AN MRI OF HIS HEAD. PT IS DIABETIC--TAKES LEVEMIR AND TRULICITY HE STATES HE WOKE UP LATE THIS MORNING, TOOK HIS MEDICATION, AND CAME TO WOUND CLINIC. HE DID NOT EAT THIS MORNING ACCUCHECK ON ARRIVAL IS 130 HE TAKES 325 MG ASPIRIN DAILY. HE IS NOT ON ANY OTHER BLOOD THINNERS HE HAS HAD COVID VACCINE X 4. HE IS NOT SURE IF HE HAS HAD FLU SHOT FOR THIS SEASON PCP: [facility]. ELIO CASE Allergies and Home Medications Allergies Coded Allergies: No Known Drug Allergies (Unverified , 12/29/19) Patient Home Medication List Home Medication List Reviewed: Yes Aspirin (Aspirin EC) 81 Mg Tablet., 81 MG PO HS, (Reported) Entered as Reported by: DUNIA COVARRUBIAS on 08/21/221518 Last Action: Reviewed Atorvastatin Calcium (Atorvastatin Calcium) 20 Mg Tablet, 20 MG PO HS, (Reported) Entered as Reported by: DUNIA COVARRUBIAS on 08/21/221518 Last Action: Reviewed Dulaglutide (Trulicity) 0.75 Mg/0.5 Ml Pen.injctr, 0.75 MG SQ SUN, (Reported) Entered as Reported by: DUNIA COVARRUBIAS on 08/21/221518 Last Action: Reviewed Empagliflozin (Jardiance) 25 Mg Tablet, 25 MG PO DAILY, (Reported) Entered as Reported by: DUNIA COVARRUBIAS on 08/21/221518 Last Action: Reviewed Escitalopram Oxalate (Escitalopram Oxalate) 20 Mg Tablet, 20 MG PO DAILY, (Reported) Entered as Reported by: ALAINA BUCHANAN on 12/29/191135 Last Action: Reviewed Gabapentin (Neurontin) 300 Mg Capsule, 300 MG PO TID, (Reported) Entered as Reported by: DUNIA COVARRUBIAS on 08/21/221518 Last Action: Reviewed Glipizide (Glipizide) 10 Mg Tablet, 10 MG PO HS, (Reported) Entered as Reported by: DUNIA COVARRUBIAS on 08/21/221518 Last Action: Reviewed Insulin Detemir (Levemir Flextouch) 100 Unit/Ml (3 Ml) Insuln.pen, 50 UNITS SC HS, (Reported) Entered as Reported by: DUNIA COVARRUBIAS on 08/21/221518 Last Action: Reviewed Levothyroxine Sodium (Levothyroxine Sodium) 75 Mcg Tablet, 75 MCG PO DAILY, (Reported) Entered as Reported by: DUNIA COVARRUBIAS on 08/21/221518 Last Action: Reviewed Metformin HCl (Metformin HCl) 1,000 Mg Tablet, 1,000 MG PO BID, (Reported) Entered as Reported by: DUNIA COVARRUBIAS on 08/21/221518 Last Action: Reviewed Discontinued Medications Aspirin (Aspirin) 325 Mg Tablet, 325 MG PO DAILY, (Reported) Discontinued Reason: No Longer Taking Entered as Reported by: ALAINA BUCHANAN on 12/29/191135 Last Action: Discontinued Benzonatate (Tessalon Perles) 100 Mg Capsule, 200 MG PO Q8H PRN for cough Discontinued Reason: No Longer Taking Prescribed by: SERGIO GOMEZ on 07/13/21 0033 Last Action: Discontinued Brexpiprazole (Rexulti) 0.5 Mg Tablet, 0.5 MG PO DAILY, (Reported) Discontinued Reason: No Longer Taking Entered as Reported by: ALAINA BUCHANAN on 12/29/191135 Last Action: Discontinued Cefdinir (Cefdinir) 300 Mg Capsule, 300 MG PO BID Discontinued Reason: No Longer Taking Prescribed by: SERGIO GOMEZ on 07/13/21 0033 Last Action: Discontinued Furosemide (Furosemide) 20 Mg Tablet, 20 MG PO DAILY, (Reported) Entered as Reported by: ALAINA BUCHANAN on 12/29/191135 Last Action: Reviewed Gabapentin (Neurontin) 300 Mg Capsule, 300 MG PO TID, (Reported) Discontinued Reason: No Longer Taking Entered as Reported by: ALAINA BUCHANAN on 12/29/191135 Last Action: Discontinued Gemfibrozil (Lopid) 600 Mg Tablet, 600 MG PO BID Discontinued Reason: No Longer Taking Prescribed by: EDUARD PA on 12/29/19 1509 Last Action: Discontinued Pravastatin Sodium (Pravastatin Sodium) 20 Mg Tablet, 20 MG PO DAILY, (Reported) Discontinued Reason: No Longer Taking Entered as Reported by: ALAINA BUCHANAN on 12/29/191135 Last Action: Discontinued Prazosin HCl (Prazosin HCl) 2 Mg Capsule, 2 MG PO HS, (Reported) Discontinued Reason: No Longer Taking Entered as Reported by: ALAINA BUCHANAN on 12/29/191135 Last Action: Discontinued Review of Systems Review of Systems Constitutional: see HPI, other (SYMCOPE) EENTM: see HPI Respiratory: no symptoms reported Cardiovascular: see HPI, chest pain; No edema, No palpitations; syncope Gastrointestinal: no symptoms reported Genitourinary: no symptoms reported Musculoskeletal: no symptoms reported Skin: see HPI Psychiatric/Neurological: See HPI, Headache; Denies Numbness, Denies Paresthesia, Denies Tingling, Denies Weakness Hematologic/Lymphatic: No Symptoms Reported Immunological/Allergic: no symptoms reported Past Uuulghr-Oxsfpe-Mibkbb Hx Patient Social History Tobacco Use?: Yes Tobacco type used: Cigarettes Smoking Status: Former Smoker Use of E-Cig and/or Vaping dev: No Substance use?: No Alcohol Use?: Yes Alcohol Frequency: Once in a while Immunizations Up To Date Tetanus Booster (TDap): Less than 5yrs First/Initial COVID19 Vaccinat: July 2020 Second COVID19 Vaccination Brett: August 2020 Past Medical History Surgeries: Yes Cardiac Respiratory: Yes Sleep Apnea Currently Using CPAP: No Cardiac: Yes (CHEST PAIN ) High Cholesterol, Hypertension Neurological: No Genitourinary: No Gastrointestinal: Yes Gastroesophageal Reflux Musculoskeletal: No Endocrine: Yes (OBESITY) Diabetes, Insulin dep HEENT: No Cancer: No Psychosocial: Yes Anxiety, Depression Integumentary: Yes (CHRONIC WOUND RIGHT FOOT/LEG) Blood Disorders: No Family Medical History SOCIAL HISTORY: -SMOKED 2 PPD, QUIT 25 YEARS AGO -ETOH--OCCASIONAL USE -DRUGS--DENIES USE CARDIAC CATH 12/29/[address] PA: CONCLUSION: 1. Mild tortuosity in the LAD, nonobstructive disease otherwise no significant obstructive disease 2. Elevated left ventricular end-diastolic pressure DISCUSSION AND RECOMMENDATION: Medical therapy is recommended no intervention is needed Physical Exam Vital Signs Vital Signs - First Documented Capillary Refill : Height, Weight, BMI Height: '" Weight: lbs. oz. kg; 36.00 BMI Method: General Appearance: No Apparent Distress, WD/WN, Obese Eyes: Right Eye Normal Inspection, Right Eye PERRL, Right Eye EOMI, Right Eye Abnormal EOM, Right Eye Abnormal Pupil, Right Eye Conjunctivae Pale, Right Eye Lid Inflammation, Right Eye Photophobia, Right Eye Scleral Icterus, Right Eye Other HEENT: PERRL/EOMI, TMs Normal, Other (2 FRONT TEETH DISPLACED AND BROKEN) Neck: Full Range of Motion, Normal Inspection, Non Tender, Supple Respiratory: Chest Non Tender, Normal Breath Sounds, No Accessory Muscle Use, No Respiratory Distress Cardiovascular: Regular Rate, Rhythm, No Edema, No JVD, No Murmur, Normal Peripheral Pulses Gastrointestinal: Non Tender, Soft Back: Normal Inspection, No CVA Tenderness, No Vertebral Tenderness Extremity: Normal Capillary Refill, Normal Range of Motion, No Calf Tenderness, No Pedal Edema Neurologic/Psychiatric: Alert, Oriented x3, No Motor/Sensory Deficits, Normal Mood/Affect, mental health case manager II-XII Norm as Tested Skin: Normal Color, Warm/Dry, Other (MINOR ABRASIONS TO RIGHT PALM AND LEFT FINGERS. ) Focused Exam Lactate Level 08/21/22 10:26: Lactic Acid Level 1.53 Lactic Acid Level Laboratory Tests Test 08/21/22 10:26 Lactic Acid Level 1.53 MMOL/L (0.50-2.00) Progress/Results/Core Measures Suspected Sepsis SIRS Temperature: Pulse: Respiratory Rate: Laboratory Tests 08/21/22 09:50: White Blood Count 8.5 Blood Pressure / Mean: 08/21/22 10:26: Lactic Acid Level 1.53 Laboratory Tests 08/21/22 09:50: Creatinine 0.86, INR Comment 1.0, Platelet Count 261, Total Bilirubin 0.5 Results/Orders Lab Results Laboratory Tests Test 08/21/22 09:41 08/21/22 09:50 08/21/22 10:26 08/21/22 10:59 Range/Units Glucometer 130 H 70-110 MG/DL White Blood Count 8.5 4.3-11.0 10^3/uL Red Blood Count 4.76 4.30-5.52 10^6/uL Hemoglobin 15.3 13.3-17.7 g/dL Hematocrit 44 40-54 % Mean Corpuscular Volume 93 80-99 fL Mean Corpuscular Hemoglobin 32 25-34 pg Mean Corpuscular Hemoglobin Concent 35 32-36 g/dL Red Cell Distribution Width 13.2 10.0-14.5 % Platelet Count 261 130-400 10^3/uL Mean Platelet Volume 11.2 9.0-12.2 fL Immature Granulocyte % (Auto) 0 % Neutrophils (%) (Auto) 67 42-75 % Lymphocytes (%) (Auto) 22 12-44 % Monocytes (%) (Auto) 5 0-12 % Eosinophils (%) (Auto) 5 0-10 % Basophils (%) (Auto) 1 0-10 % Neutrophils # (Auto) 5.6 1.8-7.8 10^3/uL Lymphocytes # (Auto) 1.9 1.0-4.0 10^3/uL Monocytes # (Auto) 0.4 0.0-1.0 10^3/uL Eosinophils # (Auto) 0.5 H 0.0-0.3 10^3/uL Basophils # (Auto) 0.0 0.0-0.1 10^3/uL Immature Granulocyte # (Auto) 0.0 0.0-0.1 10^3/uL Erythrocyte Sedimentation Rate 19 0-30 MM/HR Prothrombin Time 13.3 12.2-14.7 SEC INR Comment 1.0 0.8-1.4 Activated Partial Thromboplast Time 30 24-35 SEC D-Dimer < 0.27 0.00-0.49 UG/ML Sodium Level 139 135-145 MMOL/L Potassium Level 3.7 3.6-5.0 MMOL/L Chloride Level 104 98-107 MMOL/L Carbon Dioxide Level 23 21-32 MMOL/L Anion Gap 12 5-14 MMOL/L Blood Urea Nitrogen 11 7-18 MG/DL Creatinine 0.86 0.60-1.30 MG/DL Estimat Glomerular Filtration Rate 104 BUN/Creatinine Ratio 13 Glucose Level 137 H 70-105 MG/DL Calcium Level 9.2 8.5-10.1 MG/DL Corrected Calcium 9.1 8.5-10.1 MG/DL Magnesium Level 2.2 1.6-2.4 MG/DL Total Bilirubin 0.5 0.1-1.0 MG/DL Aspartate Amino Transf (AST/SGOT) 20 5-34 U/L Alanine Aminotransferase (ALT/SGPT) 43 0-55 U/L Alkaline Phosphatase 77 40-136 U/L Total Creatine Kinase 148 30-200 U/L Creatine Kinase MB 1.3 <6.6 NG/ML Myoglobin 91.6 10.0-92.0 NG/ML Troponin I < 0.028 <0.028 NG/ML C-Reactive Protein High Sensitivity 1.94 H 0.00-0.50 MG/DL B-Type Natriuretic Peptide < 10.0 <100.0 PG/ML Total Protein 7.4 6.4-8.2 GM/DL Albumin 4.1 3.2-4.5 GM/DL Lipase 17 8-78 U/L Serum Alcohol < 10 <10 MG/DL Lactic Acid Level 1.53 0.50-2.00 MMOL/L Urine Color YELLOW Urine Clarity CLEAR Urine pH 5.5 5-9 Urine Specific [place] 1.020 1.016-1.022 Urine Protein NEGATIVE NEGATIVE Urine Glucose (UA) 3+ H NEGATIVE Urine Ketones NEGATIVE NEGATIVE Urine Nitrite NEGATIVE NEGATIVE Urine Bilirubin NEGATIVE NEGATIVE Urine Urobilinogen 0.2 < = 1.0 MG/DL Urine Leukocyte Esterase NEGATIVE NEGATIVE Urine RBC (Auto) NEGATIVE NEGATIVE Urine RBC NONE /HPF Urine WBC NONE /HPF Urine Squamous Epithelial Cells RARE /HPF Urine Crystals NONE /LPF Urine Bacteria NEGATIVE /HPF Urine Casts NONE /LPF Urine Mucus NEGATIVE /LPF Urine Culture Indicated NO Urine Opiates Screen NEGATIVE NEGATIVE Urine Oxycodone Screen NEGATIVE NEGATIVE Urine Methadone Screen NEGATIVE NEGATIVE Urine Propoxyphene Screen NEGATIVE NEGATIVE Urine Barbiturates Screen NEGATIVE NEGATIVE Ur Tricyclic Antidepressants Screen NEGATIVE NEGATIVE Urine Phencyclidine Screen NEGATIVE NEGATIVE Urine Amphetamines Screen NEGATIVE NEGATIVE Urine Methamphetamines Screen NEGATIVE NEGATIVE Urine Benzodiazepines Screen NEGATIVE NEGATIVE Urine Cocaine Screen NEGATIVE NEGATIVE Urine Cannabinoids Screen NEGATIVE NEGATIVE My Orders Orders - RACHELLE BARDALESA Corinne DO Accucheck Stat ONCE (08/21/22 09:51) Ekg Tracing (08/21/22 09:51) Monitor-Rhythm Ecg Trace Only (08/21/22 09:51) Ct Head/Face/Cervical Wo (08/21/22 09:51) Chest 1 View, Ap/Pa Only (08/21/22 09:51) Alcohol (08/21/22 09:51) Bnp [place] (08/21/22 09:51) Cbc With Automated Diff (08/21/22 09:51) Comprehensive Metabolic Panel (08/21/22 09:51) Creatine Kinase (08/21/22 09:51) Creatine Kinase Mb (08/21/22 09:51) Hs C Reactive Protein (08/21/22 09:51) Fibrin Degradation Products (08/21/22 09:51) Drug Screen Stat (Urine) (08/21/22 09:51) Lactic Acid Analyzer (08/21/22 09:51) Lipase (08/21/22 09:51) Magnesium (08/21/22 09:51) Protime With Inr (08/21/22 09:51) Partial Thromboplastin Time (08/21/22 09:51) Ua Culture If Indicated (08/21/22 09:51) Erythrocyte Sedimentation Rate (08/21/22 09:51) Myoglobin Serum (08/21/22 09:51) Troponin I [place] (08/21/22 09:51) Ed Iv/Invasive Line Start (08/21/22 09:51) Ns Iv 1000 Ml (Sodium Chloride 0.9%) (08/21/22 10:00) Dipht,Pertuss(Acell),Tet Adult (Boostrix (08/21/22 10:00) Fentanyl Inj (Sublimaze Injection) (08/21/22 10:30) Ed Admission (Communication) (08/21/22 11:19) Medications Given in ED Vital Signs/I&O 08/21/22 08/21/22 09:38 09:38 Temp 36.7 36.7 Pulse 70 70 Resp 16 16 B/P (MAP) 130/76 (94) 130/76 (94) Pulse Ox 99 99 O2 Delivery Room Air Room Air Capillary Refill : Progress Note : Progress Note GIVEN; -DTP VACCINE -IV FLUIDS UNEVENTFUL ER STAY VITALS STABLE NO C/O CHEST PAIN ONLY C/O HEAD AND MOUTH PAIN REVIEWED TEST RESULTS, NEED FOR ADMIT, AND PT AGREES ECG Initial ECG Impression Date: Aug 21, 2022 Initial ECG Impression Time: 09:56 Initial ECG Rate: 70 Initial ECG Rhythm: Normal Sinus Initial ECG Impression: Nonspecific Changes Initial ECG Comparisson: Unchanged (NO CHANGE FROM 07/12/2021) Comment INTERPRETED BY ME Diagnostic Imaging Comments CXR--PER RADIOLOGIST REPORT AT 1032 Heart is mildly enlarged. Mediastinal silhouette is unremarkable. The lungs are clear. There is no pneumothorax or pleural fluid. IMPRESSION: Mild cardiomegaly with no acute process in the chest. CT HEAD/MAXILLOFACIALS/CERVICAL SPINE--PER RADIOLOGIST REPORT AT 1047 FINDINGS: CT HEAD: No intracranial hemorrhage, mass effect, hydrocephalus or extra-axial fluid collections. No CT evidence of a territorial infarction. The calvarium is intact. The mastoids are clear. CT MAXILLOFACIAL: No fractures. Mild mucosal thickening in the maxillary and sphenoid sinuses. Normal alignment of the temporomandibular joints. The mandible is intact. CT CERVICAL SPINE: Normal alignment. Vertebral body heights are preserved. No fractures. Mild spondylotic changes. No CT evidence of high-grade spinal canal stenosis. Mild atherosclerotic calcifications in the carotid bifurcations. Lung apices are unremarkable. IMPRESSION: No acute intracranial or cervical spine CT findings. No maxillofacial fractures. Reviewed: Reviewed by Me Departure Communication (Admissions) 1048--CALLED DR. PA, CERTIFIED MORTICIAN, MESSAGE LEFT ON CELL PHONE [phone]--SPOKE WITH DR. PA, HE ADVISES TO ADMIT TO HOSPITALIST 1115--SPOKE WITH DR TRUJILLO, HOSPITALIST, ACCEPTS PT FOR ADMIT. SHE WILL DO ADMIT ORDERS 1117--SPOKE WITH DR. SIERRA, ORAL/MAXILLOFACIAL SURGEON, AND INFORMED OF CONSULT. Impression Primary Impression: Syncope Additional Impressions: Chest pain Dental injury Insulin dependent diabetes mellitus Diabetic foot ulcer Minor head injury without loss of consciousness Facial contusion Kfzuvbcwak-mdtqxoivv-cdeikkd (DPT) vaccination administered at current visit ABRASIONS TO BILATERAL HANDS AND FINGERS Disposition: ADMITTED INPATIENT Condition: Stable Admissions Decision to Admit Reason: Admit from ER (General) Decision to Admit/Date: Aug 21, 2022 Time/Decision to Admit Time: 11:00 Departure-Patient Inst. Referrals: DANA CASE (PCP) Primary Care Physician [facility] (Family) Primary Care Physician FREDA BARDALES DO Aug 21, 2022 10:01
[2022-08-21 10:12] LABS: ALBUMIN 4.1 GM/DL (3.2-4.5); CHLORIDE 104 MMOL/L (98-107); POTASSIUM 3.7 MMOL/L (3.6-5.0); SODIUM 139 MMOL/L (135-145)
[2022-08-21 10:13] LABS: CALCIUM 9.2 MG/DL (8.5-10.1)
[2022-08-21 10:14] LABS: GLUCOSE 137 MG/DL (70-105); TOTAL PROTEIN 7.4 GM/DL (6.4-8.2)
[2022-08-21 10:15] LABS: CARBON DIOXIDE 23 MMOL/L (21-32)
[2022-08-21 10:16] LABS: BILIRUBIN,TOTAL 0.5 MG/DL (0.1-1.0)
[2022-08-21 10:18] LABS: ALKALINE PHOSPHATASE 77 U/L (40-136); CREATININE SERUM 0.86 MG/DL (0.60-1.30); GFR ESTIMATED 104
[2022-08-21 10:19] LABS: BUN/CREATININE RATIO 13; FIBRIN DEGRADATION PRODUCTS < 0.27 UG/ML (0.00-0.49); PARTIAL THROMBOPLASTIN TIME 30 SEC (24-35); PROTHROMBIN TIME PATIENT 13.3 SEC (12.2-14.7)
[2022-08-21 10:21] LABS: ALANINE AMINOTRANSFERASE 43 U/L (0-55); MAGNESIUM 2.2 MG/DL (1.6-2.4)
[2022-08-21 10:22] LABS: LIPASE 17 U/L (8-78)
[2022-08-21 10:23] LABS: CREATINE KINASE 148 U/L (30-200); ERYTHROCYTE SEDIMENTATION RATE 19 MM/HR (0-30)
[2022-08-21 10:29] LABS: CREATINE KINASE MB 1.3 NG/ML (<6.6)
--- NOTE | 2022-08-21 10:29 | Diagnostic Imaging Report ---
INDICATION: Dizziness and chest pain and fall. Frontal chest obtained at 10:22 a.m. compared to 07/12/2021 Heart is mildly enlarged. Mediastinal silhouette is unremarkable. The lungs are clear. There is no pneumothorax or pleural fluid. IMPRESSION: Mild cardiomegaly with no acute process in the chest. Dictated by: Dictated on workstation # [id number]
[2022-08-21] MEDS ORDERED: fentaNYL INJ 100 MCG/2 ML AMP IVP ONE ×2 (10:30→11:30)
--- NOTE | 2022-08-21 10:36 | Diagnostic Imaging Report ---
PROCEDURE: CT head, face, and cervical spine without contrast. TECHNIQUE: Multiple contiguous axial images were obtained through the head, neck, and facial bones without the use of intravenous contrast. Sagittal and coronal reformations through the cervical spine and facial bones were also performed. Auto Exposure Controls were utilized during the CT exam to meet ALARA standards for radiation dose reduction. INDICATION: Trauma. Left head and neck pain. COMPARISON: None. FINDINGS: CT HEAD: No intracranial hemorrhage, mass effect, hydrocephalus or extra-axial fluid collections. No CT evidence of a territorial infarction. The calvarium is intact. The mastoids are clear. CT MAXILLOFACIAL: No fractures. Mild mucosal thickening in the maxillary and sphenoid sinuses. Normal alignment of the temporomandibular joints. The mandible is intact. CT CERVICAL SPINE: Normal alignment. Vertebral body heights are preserved. No fractures. Mild spondylotic changes. No CT evidence of high-grade spinal canal stenosis. Mild atherosclerotic calcifications in the carotid bifurcations. Lung apices are unremarkable. IMPRESSION: No acute intracranial or cervical spine CT findings. No maxillofacial fractures. Dictated by: Dictated on workstation # [id number]
[2022-08-21 11:07] LABS: BILIRUBIN,URINE NEGATIVE (NEGATIVE); CLARITY,URINE CLEAR; COLOR,URINE YELLOW; GLUCOSE, URINE (UA) 3+ (NEGATIVE); KETONES,URINE NEGATIVE (NEGATIVE); LEUKOCYTE ESTERASE ,URINE NEGATIVE (NEGATIVE); NITRITE,URINE NEGATIVE (NEGATIVE); PH,URINE 5.5 (5-9); PROTEIN,URINE NEGATIVE (NEGATIVE)
[2022-08-21 11:15] LABS: BACTERIA,URINE NEGATIVE /HPF; SQUAMOUS EPITHELIAL CELL,UR RARE /HPF
[2022-08-21 11:18] LABS: AMPHETAMINE SCREEN, URINE NEGATIVE (NEGATIVE); BARBITURATE SCREEN URINE NEGATIVE (NEGATIVE); BENZODIAZEPINES SCREEN URINE NEGATIVE (NEGATIVE); CANNABINOID SCREEN, URINE NEGATIVE (NEGATIVE); COCAINE SCREEN URINE NEGATIVE (NEGATIVE); METHADONE STAT NEGATIVE (NEGATIVE); OPIATE SCREEN URINE NEGATIVE (NEGATIVE); OXYCODONE STAT NEGATIVE (NEGATIVE); PROPOXYPHENE STAT NEGATIVE (NEGATIVE); TRICYCLIC ANTIDEPRESSANTS SCRE NEGATIVE (NEGATIVE)
[2022-08-21] MEDS ORDERED: fentaNYL INJ 100 MCG/2 ML AMP IVP STA (11:27)
--- NOTE | 2022-08-21 11:47 | Consultation-Cardiology ---
HPI-Cardiology Cardiology Consultation Date of Consultation 08/21/22 Date of Admission Time Seen by Provider: 11:34 Indication: Syncope HPI Patient is a 52 y/o male with history of nonobstructive CAD per cath in 2019, HLP, DM. Presented to the ER after having syncopal episode in the parking lot as he was walking to his car from wound care. Patient reports he has had ongoing dizziness and near syncope for the last year and was scheduled to see up in office tomorrow regarding this. Reporting some intermittent right sided chest pain, denies any active chest pain at this time. Denies any dyspnea on exertion or peripheral edema. States DM have been well controlled recently. Has been going to wound care for nonhealing wound to left foot. Home Medications & Allergies Allergies: Coded Allergies: No Known Drug Allergies (Unverified , 12/29/19) Home Medication List Reviewed: Yes [id number] Hx Patient Social History Marital Status: single Smoking Status: Former Smoker Recent Hopitalizations: No Have you traveled recently?: No Alcohol Use?: Yes Immunizations Up To Date Tetanus Booster (TDap): Less than 5yrs Date of Influenza Vaccine: May 28, 2019 Past Medical History HLP, DM, extobaccoism Family Medical History Significant Family History: No Pertinent Family Hx Review of Systems-General Review of Systems Constitutional: see HPI, other ([facility]) EENTM: see HPI Respiratory: no symptoms reported; No cough, No dyspnea on exertion, No short of breath Cardiovascular: see HPI, chest pain; No edema, No palpitations; syncope Gastrointestinal: no symptoms reported, see HPI Genitourinary: no symptoms reported, see HPI Musculoskeletal: no symptoms reported, see HPI Skin: see HPI Psychiatric/Neurological: See HPI, Headache; Denies Numbness, Denies Paresthesia, Denies Tingling, Denies Weakness Reviewed Test Results Reviewed Test Results Lab Laboratory Tests 08/21/22 09:41: Glucometer 130H 08/21/22 09:50: White Blood Count 8.5, Red Blood Count 4.76, Hemoglobin 15.3, Hematocrit 44, Mean Corpuscular Volume 93, Mean Corpuscular Hemoglobin 32, Mean Corpuscular Hemoglobin Concent 35, Red Cell Distribution Width 13.2, Platelet Count 261, Mean Platelet Volume 11.2, Immature Granulocyte % (Auto) 0, Neutrophils (%) (Auto) 67, Lymphocytes (%) (Auto) 22, Monocytes (%) (Auto) 5, Eosinophils (%) (Auto) 5, Basophils (%) (Auto) 1, Neutrophils # (Auto) 5.6, Lymphocytes # (Auto) 1.9, Monocytes # (Auto) 0.4, Eosinophils # (Auto) 0.5H, Basophils # (Auto) 0.0, Immature Granulocyte # (Auto) 0.0, Erythrocyte Sedimentation Rate 19, Prothrombin Time 13.3, INR Comment 1.0, Activated Partial Thromboplast Time 30, D-Dimer < 0.27, Sodium Level 139, Potassium Level 3.7, Chloride Level 104, Carbon Dioxide Level 23, Anion Gap 12, Blood Urea Nitrogen 11, Creatinine 0.86, Estimat Glomerular Filtration Rate 104, BUN/Creatinine Ratio 13, Glucose Level 137H, Calcium Level 9.2, Corrected Calcium 9.1, Magnesium Level 2.2, Total Bilirubin 0.5, Aspartate Amino Transf (AST/SGOT) 20, Alanine Aminotransferase (ALT/SGPT) 43, Alkaline Phosphatase 77, Total Creatine Kinase 148, Creatine Kinase MB 1.3, Myoglobin 91.6, Troponin I < 0.028, C-Reactive Protein High Sensitivity 1.94H, B-Type Natriuretic Peptide < 10.0, Total Protein 7.4, Albumin 4.1, Lipase 17, Serum Alcohol < 10 08/21/22 10:26: Lactic Acid Level 1.53 08/21/22 10:59: Urine Color YELLOW, Urine Clarity CLEAR, Urine pH 5.5, Urine Specific [place] 1.020, Urine Protein NEGATIVE, Urine Glucose (UA) 3+H, Urine Ketones NEGATIVE, Urine Nitrite NEGATIVE, Urine Bilirubin NEGATIVE, Urine Urobilinogen 0.2, Urine Leukocyte Esterase NEGATIVE, Urine RBC (Auto) NEGATIVE, Urine RBC NONE, Urine WBC NONE, Urine Squamous Epithelial Cells RARE, Urine Crystals NONE, Urine Bacteria NEGATIVE, Urine Casts NONE, Urine Mucus NEGATIVE, Urine Culture Indicated NO, Urine Opiates Screen NEGATIVE, Urine Oxycodone Screen NEGATIVE, Urine Methadone Screen NEGATIVE, Urine Propoxyphene Screen NEGATIVE, Urine Barbiturates Screen NEGATIVE, Ur Tricyclic Antidepressants Screen NEGATIVE, Urine Phencyclidine Screen NEGATIVE, Urine Amphetamines Screen NEGATIVE, Urine Methamphetamines Screen NEGATIVE, Urine Benzodiazepines Screen NEGATIVE, Urine Cocaine Screen NEGATIVE, Urine Cannabinoids Screen NEGATIVE ECG Impression ECG Initial ECG Rhythm: Normal Sinus Physical Exam Physical Exam Vital Signs Vital Signs - First Documented Capillary Refill : Less Than 3 Seconds Height, Weight, BMI Height: '" Weight: lbs. oz. kg; 36.00 BMI Method: General Appearance: No Apparent Distress, WD/WN, Obese HEENT: PERRL/EOMI, TMs Normal, Other (2 FRONT TEETH DISPLACED AND BROKEN) Neck: Full Range of Motion, Normal Inspection, Non Tender, Supple Respiratory: Chest Non Tender, Normal Breath Sounds, No Accessory Muscle Use, No Respiratory Distress Cardiovascular: Regular Rate, Rhythm, No Edema, No JVD, No Murmur, Normal Peripheral Pulses Gastrointestinal: Non Tender, Soft Back: Normal Inspection, No CVA Tenderness, No Vertebral Tenderness Extremity: Normal Capillary Refill, Normal Range of Motion, No Calf Tenderness, No Pedal Edema Neurologic/Psychiatric: Alert, Oriented x3, No Motor/Sensory Deficits, Normal Mood/Affect, community associate II-XII Norm as Tested Skin: Normal Color, Warm/Dry, Other (MINOR ABRASIONS TO RIGHT PALM AND LEFT FINGERS. ) A/P-Cardiology Admission Diagnosis Syncope Dizziness/lightheadedness HLP DM Assessment/Plan Syncope, unknown etiology, questionable vasovagal syncope. Patient has dizziness followed by syncopal episode while walking to his car. Patient reports he has had increased dizziness and near syncope with standing over the past year. Has been maintained on Lasix as outpatient, denies any recent edema. I will d/c Lasix. Will continue on telemetry,evaluate 2D Echo. Consider tilt table test Nonobstructive coronary artery disease per cardiac catherization done in 2020. Hyperlipidemia, maintained on statin as outpatient. DM, management per medical services. Left foot nonhealing wound, has been going to outpatient wound care and reporting improvement. Obesity Fractured and displaced front teeth secondary to syncopal episode. Extobaccoism, reports he quit smoking over 20 years ago. Thank you for allowing us to participate in the management of Mr. Dodge. This is Teresa Maddox PA-C, as a scribe for Dr. Garcia. Patient was seen and evaluated with Teresa, doing better at this time I believe it is a vasovagal syncope due to hypovolemia I instructed him to stop Lasix, consider the use of compression socks for now Will consider tilt table test I will evaluate 2D echo Monitor blood pressure TERESA SAUCEDA Aug 21, 2022 11:46 EDUARD GARCIA MD Aug 21, 2022 14:40
[2022-08-21 12:15] VITALS: BP 142/85
[2022-08-21 12:30] VITALS: BP 138/81
[2022-08-21] MEDS ORDERED: ACETAMINOPHEN 325 MG TABLET PO PRN (13:15)
[2022-08-21] MEDS ORDERED: HYDROmorphone 2 MG/ML VIAL (DILAUDID) IV PRN (13:15)
[2022-08-21] MEDS ORDERED: diphenhydrAMINE 25 MG TAB (BENADRYL) PO PRN (13:15)
[2022-08-21] MEDS ORDERED: LACTULOSE SYRUP 10GM/15ML (ENULOSE) 30ML UDC PO PRN (13:15)
[2022-08-21] MEDS ORDERED: polyethylene glycoL POWDER 17 GM (MIRALAX) PACK PO PRN (13:15)
[2022-08-21] MEDS ORDERED: BISACODYL 10 MG SUPP (DULCOLAX) PR PRN (13:15)
[2022-08-21] MEDS ORDERED: ONDANSETRON 4 MG/2 ML (SDV) Z0FRAN IV PRN (13:15)
[2022-08-21] MEDS ORDERED: ENOXAPARIN 40 MG/0.4 ML (LOVENOX) SYR SC SCH (13:15)
[2022-08-21] MEDS ORDERED: diphenhydrAMINE 50 MG/ML INJ (BENADRYL) IVP PRN (13:15)
[2022-08-21] MEDS ORDERED: ONDANSETRON 4 MG (ZOFRAN) ORAL DISSOLVE TAB PO PRN (13:15)
[2022-08-21] MEDS ORDERED: MILK OF MAGNESIA 400 MG/5 ML 30 ML UDC PO PRN (13:15)
[2022-08-21] MEDS ORDERED: MELATONIN 3 MG TABLET PO PRN (13:15)
[2022-08-21] MEDS ORDERED: ALPRAZolam 1 MG (XANAX) TAB PO PRN (13:15)
[2022-08-21] MEDS ORDERED: ANTACID SUSP 30 ML UDC (MYLANTA) PO PRN (13:15)
[2022-08-21] MEDS ORDERED: CALCIUM CARBONATE 500 MG (TUMS) TAB.CHEW PO PRN (13:15)
[2022-08-21] MEDS ORDERED: ALPRAZolam 0.5 MG (XANAX) TAB PO PRN (13:30)
[2022-08-21] MEDS: NS IV 1000 ML 1,000 ML IV SCH (13:58)
[2022-08-21] MEDS ORDERED: DULA0.75 SQ (15:19)
[2022-08-21] MEDS ORDERED: GABA300C PO (15:19)
[2022-08-21] MEDS ORDERED: EMPA25TA PO (15:19)
[2022-08-21] MEDS ORDERED: ASPI-1238 PO (15:19)
[2022-08-21] MEDS ORDERED: INSU100I29 SC (15:19)
[2022-08-21] MEDS ORDERED: GLIP10TA13 PO (15:19)
[2022-08-21] MEDS ORDERED: ATOR20TA66 PO (15:19)
[2022-08-21] MEDS ORDERED: LEVO75TA6 PO (15:19)
[2022-08-21] MEDS ORDERED: METF-399 PO (15:19)
[2022-08-21 15:23] VITALS: BP 134/82
[2022-08-21] MEDS: inSUlin ASPART (NovoLOG) 1 UNIT/0.01 ML (CHARGE PER UNIT) SC SCH ×2 (16:30→21:31)
[2022-08-21] MEDS ORDERED: RT-ALBUTEROL SULF 2.5 MG/3 ML PRE-MIX VIAL INH PRN (17:30)
[2022-08-21 18:00] VITALS: BP 133/72
[2022-08-21 19:15] VITALS: BP 133/72
[2022-08-21] MEDS: DOCUSATE SODIUM 100 MG (COLACE) CAP PO SCH (21:31)
[2022-08-21] MEDS: SENNOSIDES 8.6 MG (SENOKOT) TAB PO SCH (21:31)
[2022-08-22] VITALS: BP 133/72
[2022-08-22] MEDS: NS IV 1000 ML 1,000 ML IV SCH (01:03)
[2022-08-22 04:33] VITALS: BP 144/56
[2022-08-22] MEDS: inSUlin ASPART (NovoLOG) 1 UNIT/0.01 ML (CHARGE PER UNIT) SC SCH ×2 (05:35→10:50)
[2022-08-22 05:53] LABS: BASOPHILS # (AUTO) 0.1 10^3/uL (0.0-0.1); BASOPHILS % (AUTO) 1 % (0-10); EOSINOPHILS # (AUTO) 0.4 10^3/uL (0.0-0.3); EOSINOPHILS % (AUTO) 5 % (0-10); HEMATOCRIT 42 % (40-54); HEMOGLOBIN 14.5 g/dL (13.3-17.7); LYMPHOCYTES % (AUTO) 24 % (12-44); MEAN CORPUSCULAR HEMOGLOBIN 32 pg (25-34); MEAN CORPUSCULAR HGB CONC 35 g/dL (32-36); MEAN CORPUSCULAR VOLUME 93 fL (80-99); MEAN PLATELET VOLUME 11.1 fL (9.0-12.2); MONOCYTES # (AUTO) 0.4 10^3/uL (0.0-1.0); MONOCYTES % (AUTO) 5 % (0-12); NEUTROPHILS # (AUTO) 5.4 10^3/uL (1.8-7.8); NEUTROPHILS % (AUTO) 65 % (42-75); PLATELET COUNT 236 10^3/uL (130-400); WHITE BLOOD COUNT 8.3 10^3/uL (4.3-11.0)
--- NOTE | 2022-08-22 05:59 | Short Stay Summary-Hospitalist ---
History of Present Illness HPI/Chief Complaint CC: Syncope HPI: This is a 52yoWM of [facility] who presents to the ER with syncope and facial injuries after falling on his face after syncope. Dr Quinones has evaluated the patient and signed off considering no surgical issues. Dr Garcia evaluated the patient and stopped the Lasix and will have close f/u with him to do further testing if needed. Currently he is doing well and ready for DC. Source: patient, family, RN/MD Exam Limitations: no limitations Date Seen 08/22/22 Time Seen by a Provider: 11:00 Attending Physician Sigrid Mckenzie PCP Admitting Physician: Rossy Joaquin DO Attending Physician: Rossy Joaquin DO Referring Physician Date of Admission Aug 21, 2022 at 11:19 Home Medications & Allergies Home Medications Reviewed patient Home Medication Reconciliation performed by pharmacy medication reconciliations configuration technician and/or nursing. Patients Allergies have been reviewed. Allergies Allergies Coded Allergies No Known Drug Allergies (Unverified12/29/19) Past Pjzqxzc-Zseqke-Pyhtpt Hx Patient Social History Marrital Status: single Tobacco Use?: Yes Tobacco type used: Cigarettes Smoking Status: Former Smoker Use of E-Cig and/or Vaping dev: No Substance use?: No Substance type: Caffeine Additional substance use comme: 2 2LITRE OF CARLOS WHYTE PER DAY Alcohol Use?: Yes Alcohol Frequency: Once in a while Pt feels they are or have been: No Immunizations Up To Date Date of Influenza Vaccine: Jun 11, 2022 First/Initial COVID19 Vaccinat: July 2020 Second COVID19 Vaccination Brett: August 2020 Tetanus Booster (TDap): Unknown Current Status Advance Directives: No Communicates: Verbally Primary Language: Samoan Preferred Spoken Language: Samoan Is interpretation needed?: No Sensory deficits: Vision impairment Implanted or Applied Medical D: None Past Medical History Surgeries: Cardiac Sleep Apnea Currently Using CPAP: No High Cholesterol, Hypertension Gastroesophageal Reflux Diabetes, Insulin dep Anxiety, Depression Blood Disorders: No Family Medical History No Pertinent Family Hx CARDIAC CATH 12/29/[address] GARCIA: CONCLUSION: 1. Mild tortuosity in the LAD, nonobstructive disease otherwise no significant obstructive disease 2. Elevated left ventricular end-diastolic pressure DISCUSSION AND RECOMMENDATION: Medical therapy is recommended no intervention is needed Review of Systems Constitutional: see HPI, weakness Physical Exam Physical Exam Vital Signs Vital Signs - First Documented Capillary Refill : Less Than 3 Seconds Height, Weight, BMI Height: '" Weight: lbs. oz. kg; 38.44 BMI Method: General Appearance: No Apparent Distress, WD/WN, Obese HEENT: PERRL/EOMI, TMs Normal, Other (2 FRONT TEETH DISPLACED AND BROKEN) Neck: Full Range of Motion, Normal Inspection, Non Tender, Supple Respiratory: Chest Non Tender, Normal Breath Sounds, No Accessory Muscle Use, No Respiratory Distress Cardiovascular: Regular Rate, Rhythm, No Edema, No JVD, No Murmur, Normal Peripheral Pulses Gastrointestinal: Non Tender, Soft Back: Normal Inspection, No CVA Tenderness, No Vertebral Tenderness Extremity: Normal Capillary Refill, Normal Range of Motion, No Calf Tenderness, No Pedal Edema Neurologic/Psychiatric: Alert, Oriented x3, No Motor/Sensory Deficits, Normal Mood/Affect, recycling collections driver II-XII Norm as Tested Skin: Normal Color, Warm/Dry, Other (MINOR ABRASIONS TO RIGHT PALM AND LEFT FINGERS. ) Results Results/Procedures Labs Laboratory Tests 08/21/22 09:50 08/22/22 05:45 Patient resulted labs reviewed. Short Stay Diagnosis Discharge Diagnosis-Short Stay Admission Diagnosis Syncope Facial trauma Final Discharge Diagnosis Syncope Facial trauma Conclusion Plan DC home Stop ROSSY Whitney DO Aug 22, 2022 05:58
[2022-08-22 06:13] LABS: ALBUMIN 3.5 GM/DL (3.2-4.5)
[2022-08-22 06:14] LABS: CALCIUM 8.9 MG/DL (8.5-10.1)
[2022-08-22 06:15] LABS: TOTAL PROTEIN 6.5 GM/DL (6.4-8.2)
[2022-08-22 06:17] LABS: BILIRUBIN,TOTAL 0.5 MG/DL (0.1-1.0)
[2022-08-22 06:19] LABS: CREATININE SERUM 0.81 MG/DL (0.60-1.30)
[2022-08-22 07:56] VITALS: BP 137/65
--- NOTE | 2022-08-22 08:20 | Cardiology Progress Note ---
Subjective Date Seen by Provider: Aug 22, 2022 Time Seen by Provider: 08:19 Subjective/Events-last exam Patient was seen at bedside, laying down comfortably, feeling better. No new complain Review of Systems General: No Chills, No Night Sweats, No Fatigue, No Malaise, No Appetite, No Other HEENT: No Head Aches, No Visual Changes, No Eye Pain, No Ear Pain, No Dyspha godwin, No Sinus Congestion, No Post Nasal Drip, No Sore Throat, No Other Pulmonary: No Dyspnea, No Cough, No Pleuritic Chest Pain, No Other Cardiovascular: No: Chest Pain, Palpitations, Orthopnea, Paroxysmal Noc. Dyspnea, Edema, Lt Headedness, Other Focused Exam Lactate Level 08/21/22 10:26: Lactic Acid Level 1.53 Objective-Cardiology Exam Last Set of Vital Signs Vital Signs 08/22/22 07:56 Temp 36.2 Pulse 72 Resp 14 B/P (MAP) 137/65 (89) Pulse Ox 95 O2 Delivery Room Air I&O Intake and Output 08/22/22 00:00 Intake Total 2150 ml Output Total 1200 ml Balance 950 ml Intake Oral 1150 ml IV Total 1000 ml Output Urine Total 1200 ml # Voids 1 General: Alert, Oriented X3, Cooperative HEENT: Atraumatic, PERRLA Neck: Supple, No JVD, No Thyromegaly Lungs: Clear to Auscultation, Normal Air Movement Heart: Regular Rate, Normal S1, Normal S2, No Murmurs Abdomen: Normal Bowel Sounds, Soft, No Tenderness, No Hepatosplenomegaly, No Masses Extremities: No Clubbing, No Cyanosis, No Edema, Normal Pulses, No Tendernes s/Swelling Skin: No Rashes, No Breakdown, No Significant Lesion Neuro: Normal Gait, Normal Speech, Strength at 5/5 X4 Ext, Normal Tone, Sensation Intact Psych/Mental Status: Mental Status NL, Mood NL Results Lab Laboratory Tests 08/21/22 09:50 08/22/22 05:45 A/P-Cardiology Admission Diagnosis Syncope Dizziness/lightheadedness HLP DM Assessment/Plan Syncope, unknown etiology, questionable vasovagal syncope. Patient has dizziness followed by syncopal episode while walking to his car. Patient reports he has had increased dizziness and near syncope with standing over the past year. Has been maintained on Lasix as outpatient, denies any recent edema. Lasix was discontinued Recommend compression socks Okay for discharge and follow-up as an outpatient Nonobstructive coronary artery disease per cardiac catherization done in 2019. Hyperlipidemia, maintained on statin as outpatient. DM, management per medical services. Left foot nonhealing wound, has been going to outpatient wound care and reporting improvement. Obesity Fractured and displaced front teeth secondary to syncopal episode. Extobaccoism, reports he quit smoking over 20 years ago. EDUARD PA MD Aug 22, 2022 08:20
[2022-08-22] MEDS: DOCUSATE SODIUM 100 MG (COLACE) CAP PO SCH (09:00)
[2022-08-22] MEDS: SENNOSIDES 8.6 MG (SENOKOT) TAB PO SCH (09:00)
[2022-08-22 11:57] VITALS: BP 147/79
== END 2022-08-22 12:45 | disposition home or self-care (01) ==
LOC: EDUNIT# 09:19 → ER 09:21 → CSD 11:19
PROVIDERS: ADMIT Internal Medicine; ATTEND Internal Medicine
DX: R55 Syncope and collapse (principal); S02.5XXA Fracture of tooth (traumatic), initial encounter for closed fracture; I25.10 Atherosclerotic heart disease of native coronary artery without angina pectoris; S91.302A Unspecified open wound, left foot, initial encounter; E78.5 Hyperlipidemia, unspecified; E11.9 Type 2 diabetes mellitus without complications; E66.9 Obesity, unspecified; Z87.891 Personal history of nicotine dependence; Z68.38 Body mass index [BMI] 38.0-38.9, adult; Y93.01 Activity, walking, marching and hiking; Z79.4 Long term (current) use of insulin; Z79.84 Long term (current) use of oral hypoglycemic drugs
CPT/HCPCS: 36415; 70450; 70486; 71045; 72125; 80053; 80306; 80320; 81000; 82550; 82553; 82947; 83605; 83690; 83735; 83874; 83880; 84484; 85025; 85379; 85610; 85652; 85730; 86141; 90715; 93005; 93041; 93306; 96372

== ENCOUNTER → 2022-08-21 | Outpatient (CLI) | payer MEDICAID ==
[~2022-08-21] MED LIST changes: +ASPI-1238 PO; +ATOR20TA66 PO; +DULA0.75 SQ; +EMPA25TA PO; +GLIP10TA13 PO; +INSU100I29 SC; +LEVO75TA6 PO
== END ==
LOC: WOUNDCARE 08:37
PROVIDERS: ATTEND Family Medicine
DX: L97.512 Non-pressure chronic ulcer of other part of right foot with fat layer exposed (principal); E11.621 Type 2 diabetes mellitus with foot ulcer; E11.40 Type 2 diabetes mellitus with diabetic neuropathy, unspecified; E66.01 Morbid (severe) obesity due to excess calories; Z91.190 Patient's noncompliance with other medical treatment and regimen due to financial hardship; M14.671 Charcot's joint, right ankle and foot
CPT/HCPCS: 11042